=== PATIENT | male | born 1950 | race Caucasian/White ===

== ENCOUNTER → 2016-08-15 | Day surgery (SDC) | payer BC ==
[2016-08-02 08:19] VITALS: Ht 170.2 cm; Wt 79.1 kg
[~2016-08-15] VITALS: Ht 170.2 cm; Wt 79.1 kg
[~2016-08-15] MED LIST: 500ML BSS 0.3ML EPI 1:1000PF IRRIG ONE; ACETAMINOPHEN 325 MG TAB PO PRN; AMVISC PLUS 0.8ML SYRINGE INT OCU ONE; ASPI81TA28 PO; ATOR-22 PO; ATROPINE SULFATE 0.1 MG/ML 5ML SYR IV PRN; AcetaZOLAMIDE 250 MG TAB PO SCH; BETAXOLOL HCL 0.25% OP SUSP PER DROP CHARGE OPL SCH; BRIMONIDINE TART 0.2% OP SOLN PER DROP CHARGE ONE; BSS FLUSH ONE; ENDOCOAT 0.85ML SYRINGE INT OCU ONE; EpHEDrine SULFATE INJ 50 MG/ML AMP IV PRN; EpINEphrine INJ 1MG/ML AMP 1 MG/ML AMP ONE; LACTATED RINGER'S 1000ML 500 ML IV SCH; LIDOCAINE 4% OP SOLN DROP CHARGE ONE; LIDOCAINE 4% OP SOLN DROP CHARGE OPL SCH; LIDOCAINE HCL 1% MPF 2 ML VIAL ONE; LISI-725 PO; MIDAZOLAM HCL 1 MG/ML 2ML VIAL ONE; MIX: 4ML BSS 1ML EPI 1:1000 PF INSTIL ONE; MOXIFLOXACIN OPH SOLN PER DROP CHARGE ONE; OCUCOAT 1 ML SOLN IO ONE; POVIDONE-IODINE OP SOLN 30 ML BTL ONE; PROPARACAINE 0.5% OP SOLN PER DROP CHARGE OPL SCH; PROPARACAINE HCL 0.5% OP SOLN 15 ML BTL OPL ONE; SERT-234 PO; TOBRAMYCIN/DEXAMETHASONE OPH OINT PER APPLN CHARGE ONE
--- NOTE | 2016-08-15 06:36 | History & Physical Bridge - [place] ---
H&P Re-Evaluation Bridge Note: I have examined the patient, reviewed the History & Physical and in the interval since the performance of the History & Physical I have noted the following changes of clinical significance: No changes noted
[2016-08-15] MEDS: PHENYLEPHRINE HCL 2.5% OP SOLN PER DROP CHARGE OPL SCH ×2 (06:37→06:42)
[2016-08-15] MEDS: TROPICAMIDE 1% OP SOLN PER DROP CHARGE OPL SCH ×2 (06:38→06:43)
[2016-08-15] MEDS: CYCLOPENTOLATE HCL 1% OP SOLN PER DROP CHARGE OPL SCH ×2 (06:39→06:44)
[2016-08-15] MEDS: MOXIFLOXACIN OPH SOLN PER DROP CHARGE OPL SCH ×2 (06:40→06:50)
--- NOTE | 2016-08-15 07:28 | Discharge Instructions-SurgCtr ---
Discharge Instructions Visit Reason for Visit: Cataract Left Eye Discharge Discharge Diagnosis / Problem: lens implant left eye Discharge Goals Goal(s): Improve function Activity Recommendations Activity Limitations: resume your previous activity Lifting Limitations: no more than 10 pounds Exercise/Sports Limitations: gradually increase as tolerated May Resume Sexual Activity: when tolerated Shower/Bathe: tomorrow Driving or Machine Use: resume 1 day after discharge Anesthesia . Post Anesthesia Instructions: If you have had General Anesthesia or IV Sedation: * Do not drive today. * Resume driving when surgeon permits. * Do not make important decisions or sign legal documents today. * Call surgeon for: 1. Temperature elevations greater than 101 degrees F. 2. Uncontrollable pain. 3. Excessive bleeding. 4. Persistent nausea and vomiting. 5. Medication intolerance (nausea, vomiting or rash). * For nausea and vomiting use only clear liquids such as: tea, soda, bouillon until nausea subsides, then gradually increase diet as tolerated. * If you have any concerns or questions, call your surgeon's office. If physician is unavailable and it is an emergency, call 911 or go to the nearest emergency room. . Instructions / Follow-Up Instructions / Follow-Up ACTIVITY RECOMMENDATIONS: * Light activities. * Mild irritation and blurred vision are common for the first few days. * You may walk outside, read, watch television. * Redness around the white part of the eye is common. MEDICATIONS: Resume previous medications unless instructed otherwise by your surgeon. * Take white Diamox (Acetazolamide) tablet at 1 pm today. Start all eye drops at 1 pm today: * Eye drops (today and tomorrow): Prednisone - one drop in operative eye every 3 hours while awake Ofloxacin - one drop in operative eye every 3 hours while awake SPECIAL CARE INSTRUCTIONS: * Tape plastic shield over eye to sleep at night. Call your doctor at with any concerns or problems. FOLLOW UP VISIT: Follow-up with Dr Cruz at [facility] office as scheduled. Diet Recommendations Home Diet: no limitations Procedures Procedures Performed: Left Eye Femtosecond Laser Pending Studies Studies pending at discharge: no Medical Emergencies . Who to Call and When: Medical Emergencies: If at any time you feel your situation is an emergency, please call 911 immediately. . Non-Emergent Contact Non-Emergency issues call your: Health Care Facility Administrator Call Non-Emergent contact if: your pain is not controlled [phone] . . "Provider Documentation" section prepared by Morgan Cruz.
--- NOTE | 2016-08-15 07:32 | [facility] Operative Report ---
Operative Report 1. PREOPERATIVE DIAGNOSIS: Pre Senile nuclear cataract, left eye. 2. POSTOPERATIVE DIAGNOSIS: Pre Senile nuclear cataract, left eye. 3. PROCEDURE: Phacoemulsification of left cataract with posterior chamber lens implant, type Bausch [employer] Lomb, model Symfany, power +17.5 diopters. ANESTHESIA: Local standby. SURGEON: Dr. Cruz. COMPLICATIONS: None. OPERATING TIME: 10 minutes. 4. OPERATION AND FINDINGS: DESCRIPTION OF PROCEDURE: The left pupil was dilated. The patient was transported to the Femto Laser room. Femto Laser was used to produce the astigmatic incision. the scan did not permit the other incisions. The patient was transported to the operating room. The anesthetic was administered using a topical technique. The left eye was prepped and draped. A speculum was placed. A clear corneal incision was formed. The chamber was filled with Amvisc Plus and Endocoat. Epinephrine solution was used. A paracentesis was placed. A capsulorrhexis was performed. The nucleus was hydrodissected. The lens was removed with phacoemulsification. Time was 3.33 seconds. The aspiration unit was used to remove the cortex. The capsule was filled with Amvisc Plus. The lens implant was folded and placed into the capsule. The incision was hydrated. The Amvisc was aspirated. The wound was secure. The chamber was deep. The pupil was round. TobraDex ointment and Vigamox solution were placed. The speculum was removed. The patient was returned to the Recovery Room in stable condition. I attest to the content of the Intraoperative Record and any orders documented therein. Any exceptions are noted below. The scribe's documentation has been prepared in my presence, under my direction and personally reviewed by me in its entirety. I confirm that the note above accurately reflects all work, treatment, procedures, and medical decision making performed by me. I personally scribed for Morgan Cruz M.D. (LORRI) on 08/15/16 at 07:32. Electronically submitted by Katie BARBOUR).
[2016-08-15 07:33] VITALS: TEMP 36.8
[2016-08-15 07:52] VITALS: BP 147/78; PULSE 60; O2SAT 96
--- NOTE | 2016-08-15 08:08 | Anesthesiology Progress Note ---
Anesthesia Post Op Note Date & Time Aug 15, 2016 at 08:08 Vital Signs Pain Intensity: 0 Vital Signs Past 12 Hours Date Time Temp Pulse Resp B/P Pulse Ox O2 Delivery O2 Flow Rate FiO2 08/15/16 07:52 60 16 147/78 96 Room Air 08/15/16 07:33 36.8 59 20 153/85 96 Room Air 08/15/16 07:10 14 168/88 08/15/16 07:09 68 08/15/16 07:09 68 96 08/15/16 07:08 176/87 08/15/16 07:04 63 08/15/16 07:04 63 96 08/15/16 07:03 169/99 08/15/16 07:00 177/97 08/15/16 06:59 67 16 97 08/15/16 06:59 67 08/15/16 06:28 36.7 71 20 168/87 95 Room Air Notes Mental Status: alert / awake / arousable, participated in evaluation Pt Amnestic to Procedure: Yes Nausea / Vomiting: adequately controlled Pain: adequately controlled Airway Patency, RR, SpO2: stable & adequate BP & HR: stable & adequate Hydration State: stable & adequate Anesthetic Complications: no major complications apparent
== END | disposition home or self-care (01) ==
LOC: X.SURG 06:10
PROVIDERS: ATTEND Specialist
DX: H26.9 Unspecified cataract (principal); I10 Essential (primary) hypertension

== ENCOUNTER → 2017-01-08 | Outpatient (CLI) | payer BC ==
[~2017-01-08] MED LIST changes: -500ML BSS 0.3ML EPI 1:1000PF IRRIG ONE; -ACETAMINOPHEN 325 MG TAB PO PRN; -AMVISC PLUS 0.8ML SYRINGE INT OCU ONE; -ATROPINE SULFATE 0.1 MG/ML 5ML SYR IV PRN; -AcetaZOLAMIDE 250 MG TAB PO SCH; -BETAXOLOL HCL 0.25% OP SUSP PER DROP CHARGE OPL SCH; -BRIMONIDINE TART 0.2% OP SOLN PER DROP CHARGE ONE; -BSS FLUSH ONE; -ENDOCOAT 0.85ML SYRINGE INT OCU ONE; -EpHEDrine SULFATE INJ 50 MG/ML AMP IV PRN; -EpINEphrine INJ 1MG/ML AMP 1 MG/ML AMP ONE; -LACTATED RINGER'S 1000ML 500 ML IV SCH; -LIDOCAINE 4% OP SOLN DROP CHARGE ONE; -LIDOCAINE 4% OP SOLN DROP CHARGE OPL SCH; -LIDOCAINE HCL 1% MPF 2 ML VIAL ONE; -MIDAZOLAM HCL 1 MG/ML 2ML VIAL ONE; -MIX: 4ML BSS 1ML EPI 1:1000 PF INSTIL ONE; -MOXIFLOXACIN OPH SOLN PER DROP CHARGE ONE; -OCUCOAT 1 ML SOLN IO ONE; -POVIDONE-IODINE OP SOLN 30 ML BTL ONE; -PROPARACAINE 0.5% OP SOLN PER DROP CHARGE OPL SCH; -PROPARACAINE HCL 0.5% OP SOLN 15 ML BTL OPL ONE; -TOBRAMYCIN/DEXAMETHASONE OPH OINT PER APPLN CHARGE ONE
[2017-01-08 10:04] LABS: ESTIMATED AVERAGE GLUCOSE 114 mg/dl; HA1C FLAG Normal (Normal)
[2017-01-08 10:06] LABS: ALKALINE PHOSPHATASE 65 U/L (45-117); ALT/SGPT 43 U/L (12-78); AST/SGOT 36 U/L (15-37); BLOOD UREA NITROGEN 19 mg/dl (7-18); BUN/CREATININE RATIO 18.8 (10-20); CALCIUM 8.7 mg/dl (8.5-10.1); CARBON DIOXIDE 29 mmol/L (21-32); CHLORIDE 107 mmol/L (98-107); CHOLESTEROL 163 mg/dl (0-200); GLUCOSE 93 mg/dl (70-99); POTASSIUM 4.1 mmol/L (3.5-5.1); SODIUM 140 mmol/L (136-145)
[2017-01-08 10:11] LABS: CHOLESTEROL/HDL RATIO 4.3; HDL CHOLESTEROL 38 mg/dl; LDL CHOLESTEROL CALCULATED 101 mg/dl; TRIGLYCERIDES 119 mg/dl (0-150); VERY LOW DENSITY LIPOPROT CALC 24 mg/dl
--- NOTE | 2017-01-16 09:14 | CODING QUERY MEDICAL NECESSITY ---
CQSUPPORTING DIAGNOSIS NEEDED A supporting diagnosis is required for the test/procedure performed on this patient in order for us to be reimbursed by the patient's insurance. Please provide a supporting diagnosis for the following test/procedure listed below next to the test name along with your signature. *If there is no additional diagnosis for this patient that would support the following test/procedure please document that below next to the test/procedure. Test(s)/Procedure(s) that require a supporting diagnosis: DOS 01/08/17 PROSTATE SPECIFIC TEST GLYCATED HEMOGLOBIN TEST Provider Signature: Date: Thank you Sarah Henry Health Information Management Once completed, please kindly fax back to [phone] For questions please call [phone]
== END | disposition home or self-care (01) ==
LOC: C.LAB 08:17
PROVIDERS: ATTEND Internal Medicine
DX: F41.1 Generalized anxiety disorder (principal); Z11.59 Encounter for screening for other viral diseases; Z12.5 Encounter for screening for malignant neoplasm of prostate; R73.09 Other abnormal glucose

== ENCOUNTER 2017-05-12 19:39 | Emergency (ER) | payer BC ==
[~2017-05-12] VITALS: Ht 170.2 cm; Wt 77.7 kg
[2017-05-12 19:43] VITALS: TEMP 36.6; Ht 170.2 cm; Wt 77.7 kg
[2017-05-12 19:51] VITALS: O2SAT 97
[2017-05-12] MEDS ORDERED: LORAZEPAM 1 MG TAB SL STA (19:56)
--- NOTE | 2017-05-12 19:59 | EMERGENCY ROOM VISIT NOTE ---
History Report prepared by Julianne: Uche Rogers Under the Supervision of: Dr. Jet Eastman M.D. First contact with patient: 19:47 Chief Complaint: IRREGULAR HEARTBEAT Stated Complaint: FEELS LIKE HEART IS MISSING A BEAT Nursing Triage Summary: pt reports I have a panic dissorder and I was away today and started to feel like my heart is skipping a beat. pt denies cp or sob at this time , feels like I have to take a deep breath History of Present Illness The patient is a 66 year old male who presents to the Emergency Room with complaints of a constant irregular heartbeat beginning today. The patient states that he was in the emergency department two weeks ago for similar symptoms that he believed to be anxiety related. He notes that [place] and constantly thinking about his heart and taking his pulse. He reports that he is under a high level of stress and often feels "overwhelmed". The patient states that he takes medication for his anxiety. He notes that his heart makes him feel like he needs to take a deeper breath in order to feel comfortable. The patient denies chest pain or exertional symptoms. No fever or recent illness. He is not suicidal. Workup from April 30 was reviewed. There was no evidence for heart disease. The patient's d dimer was negative. The patient was felt to be suffering from anxiety. Source of History: patient Onset: today Position: chest Quality: other (irregular heartbeat) Timing: constant Associated Symptoms: No fevers, No chest pain, No SOB Note: The patient states that he is highly anxious and under a high level of stress. He denies any exertional symptoms and recent illness. Review of Systems See HPI for pertinent positives & negatives. A total of 10 systems reviewed and were otherwise negative. Past Medical & Surgical Medical Problems: (1) Anxiety (2) atypical chest pain negative stress test (3) Benign hypertension (4) Hyperlipidemia Nec/Nos (5) Laceration of thumb, right, complicated Surgical Problems: (1) History of carpal tunnel release of both wrists (2) History of hernia repair Family History No pertinent family history stated. Social History Smoking Status: Never Smoker Marital Status: Housing Status: lives with family Occupation Status: employed Current/Historical Medications Scheduled Ascorbic Acid (Vitamin C), 1,000 MG PO QAM Aspirin (Aspirin Ec), 81 MG PO QAM Atorvastatin (Lipitor), 20 MG PO QAM Lisinopril (Zestril), 20 MG PO QAM Sertraline (Zoloft), 100 MG PO QAM Scheduled PRN Ranitidine (Zantac), 150 MG PO UD PRN for Indigestion Allergies Coded Allergies: No Known Allergies (Unverified , 05/12/17) Physical Exam Vital Signs Date Time Temp Pulse Resp B/P (MAP) Pulse Ox O2 Delivery O2 Flow Rate FiO2 05/12/17 21:22 81 14 147/81 94 Room Air 05/12/17 20:36 78 05/12/17 19:51 97 Room Air 05/12/17 19:43 36.6 112 20 199/101 98 Room Air Physical Exam GENERAL: Patient is in no acute distress. HEENT: No acute trauma, normocephalic atraumatic, mucous membranes moist, no nasal congestion, no scleral icterus. NECK: No stridor, no adenopathy, no meningismus, trachea is midline. LUNGS: Clear to auscultation bilaterally, no wheeze, no rhonchi, breath sounds equal. HEART: Mildly tachycardic with an occasional extra beat and a slight systolic murmur. ABDOMEN: Soft, nontender, bowel sounds positive, no hernias, no peritonitis. EXTREMITIES: No cyanosis or edema, full range of motion of all the joints without pain or difficulty, no signs for acute trauma. NEUROLOGIC: Oriented x 3, no acute motor or sensory deficits, no focal weakness. PSYCH: Very anxious, not suicidal, cooperative. SKIN: No rash, no jaundice, no diaphoresis. Medical Decision & Procedures ER Provider Diagnostic Interpretation: Radiology results as stated below per my review and radiologist interpretation: CHEST ONE VIEW PORTABLE. FINDINGS: The lungs are clear. Cardiac silhouette is normal in size. No pleural effusions. No pneumothorax. Incidental is made of a small right azygos lobe. IMPRESSION: No acute process. Electronically signed by: Elroy Pinto M.D. 05/12/2017 8:24 PM Laboratory Results 05/12/17 20:30 05/12/17 20:30 Test 05/12/17 20:30 Red Blood Count 4.40 M/uL (4.7-6.1) Mean Corpuscular Volume 90.2 fL (80-100) Mean Corpuscular Hemoglobin 30.2 pg (25-34) Mean Corpuscular Hemoglobin Concent 33.5 g/dl (32-36) RDW Standard Deviation 46.1 fL (36.4-46.3) RDW Coefficient of Variation 13.9 % (11.5-14.5) Mean Platelet Volume 9.9 fL (7.4-10.4) Anion Gap 10.0 mmol/L (3-11) Est Creatinine Clear Calc Drug Dose 67.5 ml/min Estimated GFR () 89.0 Estimated GFR (Non- 76.8 BUN/Creatinine Ratio 16.5 (10-20) Calcium Level 9.0 mg/dl (8.5-10.1) Troponin I < 0.015 ng/ml (0-0.045) Laboratory results reviewed by me. Medications Administered Medications (Trade) Dose Ordered Sig/Laisha Route Start Time Stop Time Status Last Admin Dose Admin Lorazepam (Ativan Tab) 1 mg NOW STAT SL 05/12/17 19:56 05/12/17 19:58 DC 05/12/17 20:29 1 MG Lorazepam (Ativan 1MG Home Pack) 1 homepack UD ONCE PO 05/12/17 21:45 05/12/17 21:46 05/12/17 21:36 1 HOMEPACK ECG Indication: palpitations Rate (beats per minute): 104 Rhythm: sinus tachycardia Findings: PVC, no acute ischemic change ED Course 1948: The patient was evaluated in room B10. A complete history and physical exam was performed. 1955: Lorazepam 1mg SL 2137: Reevaluated the patient. Discussed results and discharge instructions: He verbalized understanding and agreement. The patient is ready for discharge. Medical Decision Differential diagnoses include: dysrhythmia, atrial fibrillation, atrial flutter , electrolyte imbalance, anemia, TX, pneumonia, and anxiety. There is no leukocytosis or concerning anemia. No significant electrolyte abnormality, kidney failure. Chest film does not show mediastinal widening, pneumonia or pneumothorax. EKG shows a mild sinus tachycardia with PVCs, no acute ischemic, no concerning dysrhythmia. Cardiac enzyme testing times one is not consistent with acute cardiac injury. I did review the workup from April 30, d-dimer testing was negative, thyroid testing was unremarkable. Cardiac testing was unremarkable. The patient did receive oral Ativan, his heart rate has improved, he feels better. I suspect the patient is suffering from anxiety. He will be discharged with an Ativan home pack to use as needed. He will talk with his family doctor's office , if worsening, he can return. Medication Reconcilliation Current Medication List: was personally reviewed by me Blood Pressure Screening Patient's blood pressure: Elevated blood pressure Blood pressure disposition: Elevated BP felt to be situational Impression Primary Impression: Palpitations Additional Impression: Anxiety Scribe Attestation The scribe's documentation has been prepared under my direction and personally reviewed by me in its entirety. I confirm that the note above accurately reflects all work, treatment, procedures, and medical decision making performed by me. Departure Information Dispostion Home / Self-Care Referrals Kang Ortiz M.D. (PCP) Forms HOME CARE DOCUMENTATION FORM, IMPORTANT VISIT INFORMATION Patient Instructions My [facility] [place] Additional Instructions may use ativan 1 tab as needed for severe anxiety heart testing today was all ok see kateryna porter this week for a recheck return if worsening Problem Qualifiers
--- NOTE | 2017-05-12 20:26 | DIAGNOSTIC IMAGING REPORT ---
CHEST ONE VIEW PORTABLE HISTORY: Atypical CHEST PAIN COMPARISON: None. FINDINGS: The lungs are clear. Cardiac silhouette is normal in size. No pleural effusions. No pneumothorax. Incidental is made of a small right azygos lobe. IMPRESSION: No acute process. Electronically signed by: Elory Pinto M.D. 05/12/2017 8:24 PM Dictated Date/Time: 05/12/2017 8:24 PM
[2017-05-12 20:58] LABS: HEMATOCRIT 39.7 % (42-52); MEAN CELL VOLUME 90.2 fL (80-100); MEAN CORPUSCULAR HEMOGLOBIN 30.2 pg (25-34); MEAN CORPUSCULAR HGB CONC 33.5 g/dl (32-36); MEAN PLATELET VOLUME 9.9 fL (7.4-10.4); PLATELET COUNT 197 K/uL (130-400); WHITE BLOOD COUNT 8.72 K/uL (4.8-10.8)
[2017-05-12] MEDS ORDERED: ASCO10003 PO (21:03)
[2017-05-12] MEDS ORDERED: ZNTT/150 PO (21:03)
[2017-05-12 21:14] LABS: BLOOD UREA NITROGEN 17 mg/dl (7-18); BUN/CREATININE RATIO 16.5 (10-20); CARBON DIOXIDE 26 mmol/L (21-32); CHLORIDE 103 mmol/L (98-107); CREATININE 1.02 mg/dl (0.60-1.40); GLUCOSE 98 mg/dl (70-99); POTASSIUM 3.6 mmol/L (3.5-5.1); SODIUM 138 mmol/L (136-145)
[2017-05-12 21:22] VITALS: BP 147/81; PULSE 81; O2SAT 94
[2017-05-12] MEDS ORDERED: ATIVAN 1MG HOMEPACK PO ONE (21:45)
== END 2017-05-12 21:46 | disposition home or self-care (01) ==
LOC: C.EDB 19:40
DX: R00.2 Palpitations (principal); F41.9 Anxiety disorder, unspecified; I10 Essential (primary) hypertension; E78.5 Hyperlipidemia, unspecified; Z79.899 Other long term (current) drug therapy

== ENCOUNTER → 2017-07-02 | Outpatient (CLI) | payer BC ==
[~2017-07-02] MED LIST changes: +ASCO10003 PO; +ZNTT/150 PO
[2017-07-02 16:30] LABS: ALT/SGPT 63 U/L (12-78); AST/SGOT 32 U/L (15-37); BLOOD UREA NITROGEN 18 mg/dl (7-18); CALCIUM 9.2 mg/dl (8.5-10.1); CARBON DIOXIDE 31 mmol/L (21-32); CREATININE 1.04 mg/dl (0.60-1.40); GLUCOSE 99 mg/dl (70-99); POTASSIUM 4.3 mmol/L (3.5-5.1); SODIUM 136 mmol/L (136-145)
[2017-07-02 16:35] LABS: ALKALINE PHOSPHATASE 59 U/L (45-117); CHOLESTEROL 159 mg/dl (0-200); LDL CHOLESTEROL CALCULATED 94 mg/dl; TOTAL PROTEIN 8.3 gm/dl (6.4-8.2)
== END | disposition home or self-care (01) ==
LOC: C.LAB1850 11:00
PROVIDERS: ATTEND Physician Assistant Medical
DX: I10 Essential (primary) hypertension (principal); F41.1 Generalized anxiety disorder; E78.5 Hyperlipidemia, unspecified

== ENCOUNTER 2017-10-17 10:40 | Emergency (ER) | payer BC ==
[~2017-10-17] VITALS: Ht 170.2 cm; Wt 81.4 kg
[~2017-10-17 10:40] MED LIST changes: +RANI150T85 PO; -SERT-234 PO; -ZNTT/150 PO
[2017-10-17 10:43] VITALS: TEMP 38.1; Ht 170.2 cm; Wt 81.4 kg
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
[2017-10-17] MEDS ORDERED: DIPHTHERIA/TETANUS/PERTUSSIS 0.5 ML SYR/VIAL IM. ONE (11:15)
[2017-10-17] MEDS ORDERED: SERT-234 PO (11:17)
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
[2017-10-17] MEDS ORDERED: CEFAZOLIN SOD 1000MG/7.5 ML IV PUSH IV STA (11:33)
[2017-10-17 12:22] LABS: PTT PATIENT 23.2 SECONDS (21.0-31.0)
[2017-10-17 12:23] LABS: BASO % 0.5 %; BASO ABS # 0.03 K/uL (0-0.2); EOS % 1.2 %; EOS ABS # 0.08 K/uL (0-0.5); HEMATOCRIT 41.8 % (42-52); HEMOGLOBIN 14.3 g/dL (14.0-18.0); IG# 0.02 K/uL (0.00-0.02); LYMPH % 30.1 %; LYMPH ABS # 1.98 K/uL (1.2-3.4); MEAN CELL VOLUME 88.6 fL (80-100); MEAN CORPUSCULAR HEMOGLOBIN 30.3 pg (25-34); MEAN CORPUSCULAR HGB CONC 34.2 g/dl (32-36); MEAN PLATELET VOLUME 9.9 fL (7.4-10.4); MONO % 9.6 %; MONO ABS # 0.63 K/uL (0.11-0.59); NEUT % 58.3 %; NEUT ABS # 3.83 K/uL (1.4-6.5); PLATELET COUNT 213 K/uL (130-400); RED CELL DISTRIBUTION WIDTH CV 13.9 % (11.5-14.5); RED CELL DISTRIBUTION WIDTH SD 45.4 fL (36.4-46.3); WHITE BLOOD COUNT 6.57 K/uL (4.8-10.8)
[2017-10-17 12:30] LABS: ALBUMIN 4.1 gm/dl (3.4-5.0); CALCIUM 8.9 mg/dl (8.5-10.1); CREATININE 0.98 mg/dl (0.60-1.40); POTASSIUM 3.8 mmol/L (3.5-5.1)
[2017-10-17 12:32] LABS: TOTAL PROTEIN 8.5 gm/dl (6.4-8.2)
[2017-10-17] MEDS ORDERED: LORAZEPAM 2 MG/ML 1 ML VIAL IV STA (12:47)
[2017-10-17 13:27] LABS: HEP C IGG 13 YRS+OLDER_RFLX NEG (NEG)
--- NOTE | 2017-10-17 13:35 | EMERGENCY ROOM VISIT NOTE ---
ED Visit Note First contact with patient: 10:51 I have personally seen and evaluated the patient with the physician assistant professor of archaeology. I agree with the diagnostic/management decisions and have personally been involved in these decisions and agree with the diagnosis.
[2017-10-17] MEDS ORDERED: CEPH500C PO (14:58)
[2017-10-17 15:00] VITALS: BP 165/115; PULSE 92; O2SAT 95
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
== END 2017-10-17 15:14 | disposition home or self-care (01) ==
LOC: C.EDB 10:41 → C.EDD 15:14
DX: S61.201A Unspecified open wound of left index finger without damage to nail, initial encounter (principal); S62.651B Nondisplaced fracture of middle phalanx of left index finger, initial encounter for open fracture; W32.0XXA Accidental handgun discharge, initial encounter; Y92.009 Unspecified place in unspecified non-institutional (private) residence as the place of occurrence of the external cause; I10 Essential (primary) hypertension; E78.5 Hyperlipidemia, unspecified; Z79.82 Long term (current) use of aspirin; Z79.899 Other long term (current) drug therapy; Z23 Encounter for immunization

== ENCOUNTER → 2018-01-20 | Outpatient (CLI) | payer BC ==
[~2018-01-20] MED LIST changes: -ASCO10003 PO; +SERT-234 PO
[2018-01-20 14:08] LABS: BASO % 0.5 %; BASO ABS # 0.03 K/uL (0-0.2); EOS % 3.8 %; EOS ABS # 0.21 K/uL (0-0.5); HEMATOCRIT 41.6 % (42-52); HEMOGLOBIN 13.9 g/dL (14.0-18.0); IG# 0.01 K/uL (0.00-0.02); LYMPH % 36.6 %; LYMPH ABS # 2.03 K/uL (1.2-3.4); MEAN CELL VOLUME 89.8 fL (80-100); MEAN CORPUSCULAR HGB CONC 33.4 g/dl (32-36); MEAN PLATELET VOLUME 10.7 fL (7.4-10.4); MONO % 13.2 %; MONO ABS # 0.73 K/uL (0.11-0.59); NEUT % 45.7 %; NEUT ABS # 2.53 K/uL (1.4-6.5); PLATELET COUNT 191 K/uL (130-400); RED CELL DISTRIBUTION WIDTH CV 14.5 % (11.5-14.5); RED CELL DISTRIBUTION WIDTH SD 47.4 fL (36.4-46.3); WHITE BLOOD COUNT 5.54 K/uL (4.8-10.8)
[2018-01-20 14:23] LABS: ALBUMIN 3.7 gm/dl (3.4-5.0); ALKALINE PHOSPHATASE 63 U/L (45-117); ALT/SGPT 68 U/L (12-78); AST/SGOT 42 U/L (15-37); BLOOD UREA NITROGEN 18 mg/dl (7-18); CALCIUM 8.4 mg/dl (8.5-10.1); CARBON DIOXIDE 25 mmol/L (21-32); CHOLESTEROL 147 mg/dl (0-200); CREATININE 1.02 mg/dl (0.60-1.40); GLUCOSE 99 mg/dl (70-99); LDL CHOLESTEROL CALCULATED 95 mg/dl; POTASSIUM 4.1 mmol/L (3.5-5.1); SODIUM 138 mmol/L (136-145); TOTAL PROTEIN 7.7 gm/dl (6.4-8.2)
== END | disposition home or self-care (01) ==
LOC: C.LABBC 09:35
PROVIDERS: ATTEND Internal Medicine
DX: Z00.00 Encounter for general adult medical examination without abnormal findings (principal); I10 Essential (primary) hypertension; F41.1 Generalized anxiety disorder; E78.5 Hyperlipidemia, unspecified; R73.09 Other abnormal glucose

== ENCOUNTER 2018-02-06 13:08 | Emergency (ER) | payer BC ==
[~2018-02-06] VITALS: Ht 170.2 cm; Wt 78.1 kg
[2018-02-06 13:10] VITALS: TEMP 36.8; Ht 170.2 cm; Wt 78.1 kg
[2018-02-06] MEDS ORDERED: LIDOCAINE 1% BUFFERED INJ 20 ML VIAL INFIL ONE (13:30)
--- NOTE | 2018-02-06 13:56 | EMERGENCY ROOM VISIT NOTE ---
ED Visit Note First contact with patient: 13:13 CHIEF COMPLAINT: Left third finger laceration HISTORY OF PRESENT ILLNESS: This 67-year-old male patient cut the left third finger on a table saw just prior to arrival.. The bleeding has stopped. Denies weakness or numbness of the finger. Patient is right-hand dominant. The patient's tetanus is up-to-date. REVIEW OF SYSTEMS: 6 system review was performed and was negative unless stated otherwise in history of present illness. PMH: The patient is healthy; hypertension, kidney stones, carpal tunnel surgery , hernia repair SOCIAL HISTORY: Patient lives with his . Patient denies tobacco use but admits to occasional alcohol use. PHYSICAL EXAM: Vital Signs: Were reviewed reviewed Nurse's notes. GENERAL: 67- year-old white male appears in no acute distress. MENTAL Status: Alert and oriented 3. The patient talks constantly. LEFT THIRD FINGER: There is a 2.5 cm long laceration on the anterior aspect of the middle phalanx the edges gape apart without traction. It appears a portion of the soft tissue has been avulsed. There is no foreign material in the wound and it looks clean. There is no bleeding. I can visualize a portion of the extensor tendon which appears intact. Extension of the finger is full and strong. EMERGENCY DEPARTMENT COURSE: The patient was evaluated. Wound Repair: Complexity: Basic. Verbal consent was obtained after the risks and benefits were explained, including but not limited to bleeding, scarring, infection, pain, and bone/joint /nerve damage. The skin was prepped with betadine and a sterile field set. The wound was anesthetized with 2.4 ml of 1% buffered lidocaine. With direct pressure the bleeding subsided. Copious irrigation was performed using sterile saline. The wound was explored for foreign bodies and none found. I was able to visualize the extensor tendon which was intact. Debridement was not performed. The wound edges were approximated as close as possible using 4-0 Ethilon with 5 simple interrupted sutures. Hemostasis and excellent approximation was achieved. Antibacterial ointment and a sterile dressing applied. Detailed wound care instructions and signs and symptoms of infection reviewed with the patient. No complications and the patient tolerated the procedure well. cage splint was applied. The patient was discharged home in stable condition. DIAGNOSIS: Left third finger laceration DISCHARGE INSTRUCTIONS & TREATMENT: Take Keflex as prescribed. Keep wound clean and dry. No water on the area for 12-24 hrs then no soaking until sutures removed. Do not allow any crusting or dried blood to accumulate on sutures. If this occurs, use a 1:1 solution of hydrogen peroxide/water on a Q- tip to clean the wound. Use an antibiotic ointment for 3-4 days, then let wound dry. 10 days. Follow up sooner for any signs of infection (increasing redness, swelling, drainage). Ice and elevate for swelling and pain. Tylenol 650 mg every 6 hrs for pain. Problem List Medical Problems: (1) atypical chest pain negative stress test Status: Resolved (2) Benign hypertension Status: Chronic (3) Hyperlipidemia Nec/Nos Status: Chronic (4) Laceration of thumb, right, complicated Status: Resolved Surgical Problems: (1) History of carpal tunnel release of both wrists Status: Resolved (2) History of hernia repair Status: Resolved Current/Historical Medications Scheduled Aspirin (Aspirin Ec), 81 MG PO QAM Atorvastatin (Lipitor), 20 MG PO QAM Lisinopril (Zestril), 20 MG PO QAM Sertraline (Zoloft), 150 MG PO QAM Scheduled PRN Ranitidine (Zantac), 150 MG PO UD PRN for Indigestion Allergies Coded Allergies: No Known Allergies (Unverified , 10/17/17) Vital Signs Date Time Temp Pulse Resp B/P (MAP) Pulse Ox O2 Delivery O2 Flow Rate FiO2 02/06/18 13:10 36.8 72 18 157/96 96 Room Air Departure Information Referrals Kang Ortiz M.D. (PCP) Patient Instructions My [facility]
[2018-02-06] MEDS ORDERED: CEPH500C2 PO (13:57)
[2018-02-06 14:04] VITALS: BP 124/91; PULSE 75; O2SAT 94
== END 2018-02-06 14:05 | disposition home or self-care (01) ==
LOC: C.EDB 13:11 → C.EDD 14:05
DX: S61.213A Laceration without foreign body of left middle finger without damage to nail, initial encounter (principal); W31.2XXA Contact with powered woodworking and forming machines, initial encounter; I10 Essential (primary) hypertension; E78.5 Hyperlipidemia, unspecified; Z79.899 Other long term (current) drug therapy; Z79.82 Long term (current) use of aspirin